=== PATIENT | male | born 1965 | race Caucasian/White ===

== ENCOUNTER 2023-05-13 08:42 | Emergency (ER) | payer OTHER, SELFPAY ==
[2023-05-13 08:47] VITALS: BP 191/108
--- NOTE | 2023-05-13 09:26 | ED.GENMED ---
History of Present Illness
General
Chief Complaint: Rectal Bleeding
Source: patient
Exam Limitations: none
Time Seen by Provider: 05/13/23 09:04
Nursing documentation reviewed up to this point in time: agreed with
Travel History
Have you had any contact with someone who has COVID-19?: No
Do you have any symptoms of coronavirus? Fever > 100 degrees, chills, cough, shortness of breath, sore throat, loss of taste or smell, muscle aches, or headache?: No
History of Present Illness
History of Present Illness:
57-year-old male with past medical history of hypertension hyperlipidemia previous colon resection last year secondary to recurrent diverticulitis and significant diverticulosis. He is presenting to the emergency department today with concerns of
bright red blood starting yesterday morning multiple episodes throughout the day yesterday and 1 episode today. Has had nausea no vomiting. Also has discomfort to the lower abdomen mainly to the right lower and left lower quadrants. He claims
this feels somewhat similar to previous episodes of diverticulitis. Denies chest pain shortness of breath or lightheadedness. Denies taking blood thinners.
Past History
Past History
ED Past Medical History: None
ED Past Surgical History: Negative Appendectomy, Bowel resection, Cardiac or Cholecystectomy
Social History
Tobacco: Non-smoker
Alcohol: Occasional
Drug: None
Personal:
Living: with family
Employment: Employed
Family History
Family History: Other (Noncontributory)
Review of Systems
Review of Systems
Allergies reviewed?: Yes
All Other Systems: ROS reviewed and negative except as documented in HPI and ROS
Phy Exam
Physical Exam
Physical Exam:
GENERAL: Alert , in no apparent distress
EYE: pupils equal and reactive
NECK: Supple, no significant adenopathy.
ENT: o/p clr, mmm.
CARDIAC: Regular rate and rhythm .
LUNGS: Clear breath sounds bilaterally, no acute respiratory distress, no wheezes/rales/rhonchi
ABDOMEN: Rectal examination with light brown stool vaguely guaiac positive. No hemorrhage. Tender to palpation throughout the lower abdomen maximal to the left lower quadrant less discomfort to the right quadrant no guarding no peritoneal signs.
NEUROLOGICAL: Alert and oriented, no focal neuro deficits
SKIN: Warm and dry, skin intact.
MUSCULOSKELETAL: No edema, well perfused.
PSYCH: Normal and appropriate interaction.
Course
Orders/Labs/Results
Orders:
Orders
05/13/23 08:51
EKG [Electrocardiogram (*1)] Urgent
Reason for Study: Tachycardia
EKG- Treatment ONCE
05/13/23 09:22
0.9% Sodium Chloride 1000 ml [Nss] 1,000 ml IV BOLUS
Ondansetron Injectable [Zofran] 4 mg IV NOW STA
Test Result ONCE
05/13/23 09:48
Type+Screen Urgent
Alcohol Urgent
Complete Blood Count/With Diff Urgent
Comprehensive Metabolic Panel Urgent
PTT Urgent
Prothrombin Time Urgent
Urinalysis Reflex To Culture Urgent
Date Specimen was Collected: 05/13/23
Time Specimen was Collected: 09:30
05/13/23 10:02
Iohexol [Omnipaque] 50 ml .ROUTE .[facility]
05/13/23 10:24
CT Abd/pel W Iv And Oral Contr Urgent
Comment:
Reason For Exam: abd pain
Iohexol [Omnipaque] See Protocol PO NOW STA
05/13/23 11:14
Add On- LAB Urgent
Tests Added?: alcohol
Abnormal Lab Results
05/13/23
09:48
MCH 31.4 H pg
(27.0-31.0)
MPV 10.5 H fL
(7.4-10.4)
Absolute Lymphs (auto) 0.9 L 10^3/uL
(1.2-3.4)
Lymphocytes % 16.1 L %
(20.5-51.1)
Monocytes % 11.2 H %
(1.7-9.3)
Glucose 108 H mg/dl
(70-99)
05/13/23 09:48
05/13/23 09:48
Vital Signs
Initial and Last Documented VS:
Initial Vital Signs
Temp Pulse Resp BP Pulse Ox
98.7 F 122 16 191/108 97
05/13/23 08:47 05/13/23 08:47 05/13/23 08:47 05/13/23 08:47 05/13/23 08:47
Last Documented Vital Signs
Temp Pulse Resp BP Pulse Ox
98.7 F 76 18 159/107 96
05/13/23 08:47 05/13/23 16:49 05/13/23 16:49 05/13/23 16:49 05/13/23 16:49
MDM/Problems Addressed
MDM/Problems Addressed:
57-year-old male presenting to the emergency department today with concerns of bright red blood per rectum over the past 24 hours. Had multiple episodes of red stool. Also brown stool as well. Has had lower abdominal in the same time. Does have
a history of glottis. But here heart rate elevated in the 110s during my examination initial EKG in the 120s sinus rhythm. Denies any lightheadedness chest pain shortness of breath. Has had intermittent palpitations and is being evaluated by
cardiology for this recently had a Holter monitor in place. Otherwise here his main concern is his lower abdominal bleeding. Plan for CT scan for further assessment as well as labs. CT without emergent findings hemoglobin 17.2 patient reassessed
still with lower abdominal pain. Concerning the patient's history of GI surgery description of large volume bleeding earlier today plan for admission for further monitoring and repeated labs.
1655: Patient was seen by hospitalist and decided that he would prefer to go home and will return for any worsening of symptoms. Patient did appear well throughout ER stay and I feel this is reasonable to go home. He understands potential risk and
will return for any worsening symptoms.
*Critical Care Note
Total Time (30-74mins, 75-104mins- exclusive of procedures): Not Applicable
ED Attending Note
-
Portions of this chart may have been created with voice recognition software.� Occasional wrong word or��sound alike� substitutions may have occurred due to the inherent limitations of voice recognition software.
Discharge Plan
Departure
Patient Disposition: Home (Routine Discharge)
Date of Disposition: 05/13/23
Time of Disposition: 15:34
Admit to: Med/Surg
Admit to doctor: Aguirre
Presentation/result/management discussed w/ accepting MD/: Hospitalist
Patient with high blood pressure during this ER visit?: No
Condition: Good
Covid-19: Not Applicable
Discharge Problem:
Rectal bleeding, Abdominal pain
Instructions: Bloody Stools, Adult (DC)
Prescriptions:
No Action
multivitamin with folic acid [Tab-A-Haim] 1 TABLET tablet
1 tab PO DAILY
tramadol 50 mg Tablet
50 mg PO DAILYPRN PRN (Reason: moderate pains)
amlodipine [Norvasc] 10 mg Tablet
10 mg PO DAILY
oxycodone 5 mg tablet
5 mg PO Q6HPRN PRN (Reason: ra flares up)
metoprolol tartrate 25 mg tablet
25 mg PO BID
Referrals:
Rayna Warner MD [Active] - Follow up in 5-7 days
Willie Mae DO [Family Provider] -
Activity Restrictions/Additional Instructions:
You came to the emergency department today with concerns of blood in your stool. 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 Return to the emergency department for any worsening, new or concerning symptoms.
Interventions
Interventions:
*Risk Screen - Suicide Last Done: 05/13/23 08:47
*General Assessment Last Done: 05/13/23 08:47
*Neglect/Abuse Screening Last Done: 05/13/23 08:47
WA-Pgxjjt-Eozspkuxfr Assessment Last Done: 05/13/23 11:25
ED- Cardiac Assessment Last Done: 05/13/23 11:25
ED- Pulmonary Assessment Last Done: 05/13/23 11:25
[2023-05-13] MEDS: NSS 1000 IV (09:46)
[2023-05-13] MEDS: ZOFRAN 4 MG IV (09:46)
[2023-05-13 10:06] LABS: % Basophils 0.7 % (0-2); % Eosinophils 0.5 % (0-6); % Immature Granulocytes 0.2 % (0-0.5); % Lymphocytes 16.1 % (20.5-51.1); % Monocytes 11.2 % (1.7-9.3); % Neutrophils 71.3 % (42.2-75.2); Absolute Lymphocytes 0.9 10^3/uL (1.2-3.4); Absolute Monocytes 0.6 10^3/uL (0.1-0.6); Absolute Neutrophils 4.1 10^3/uL (1.4-6.5); Hematocrit 48.9 % (39.0-52.0); Hemoglobin 17.2 g/dL (13.0-18.0); Mean Corp Hgb Conc. 35.2 g/dL (33.0-37.0); Mean Corpuscular Hgb 31.4 pg (27.0-31.0); Mean Corpuscular Volume 89.2 fL (80.0-94.0); Mean Platelet Volume 10.5 fL (7.4-10.4); Nucleated Red Blood Cells % 0 % (-); Platelet Count 207 10^3/uL (130-400); Red Blood Cell Count 5.48 10^6/uL (4.70-6.10); Red Cell Dist. Width 12.8 % (11.5-14.5); White Blood Cell Count 5.7 10^3/uL (4.8-10.8)
[2023-05-13 10:17] LABS: INR 1.06
[2023-05-13 10:18] LABS: ALT (SGPT) 49 U/L (0-50); APTT 28.8 Sec (23.4-35.0); AST (SGOT) 33 U/L (17-59); Albumin 4.3 g/dl (3.5-5.0); Alkaline Phosphatase 103 U/L (38-126); Blood Urea Nitrogen 19 mg/dl (9-20); Calcium 9.1 mg/dl (8.4-10.2); Carbon Dioxide 27 mmol/L (22-30); Chloride 105 mmol/L (98-107); Glucose 108 mg/dl (70-99); Potassium 4.1 mmol/L (3.5-5.1); Sodium 137 mmol/L (135-145); Total Bilirubin 0.8 mg/dl (0.2-1.3); Total Protein 7.1 g/dl (6.3-8.2); eGFR > 60.00
[2023-05-13] MEDS: OMNIPAQUE 50 ML PO (10:50)
[2023-05-13 10:54] VITALS: BP 154/96
[2023-05-13 11:00] VITALS: BP 155/92
[2023-05-13 11:03] LABS: Urine Albumin Negative (Neg - Trace); Urine Bilirubin Negative (Negative); Urine Character Clear (Clear); Urine Color Yellow; Urine Glucose Negative (Negative); Urine Ketone Negative (Negative); Urine Leukocyte Negative (Negative); Urine Nitrite Negative (Negative); Urine Occult Blood Negative (Negative); Urine Specific Gravity 1.015 (<1.030); Urine Urobilinogen Negative (Neg - 1+)
[2023-05-13 11:29] VITALS: BMI 31.5
[2023-05-13 12:47] LABS: Alcohol None Detected
[2023-05-13 16:49] VITALS: BP 159/107
== END 2023-05-13 17:06 | disposition home or self-care (01) ==
LOC: EMR 08:42
PROVIDERS: Physician Assistant; EMERGENCY PHYSICIAN Emergency Medicine; FAMILY PHYSICIAN Family Medicine
DX: K62.5 Hemorrhage of anus and rectum (principal); R10.9 Unspecified abdominal pain
CPT/HCPCS: 99285; 96374; 96361; 74177; 80053; 81003; 82077; 85025; 85610; 85730; 86850; 86900; 86901; 93005; Q9967

== ENCOUNTER → 2023-05-21 07:12 | Outpatient (REF) | payer OTHER, SELFPAY | LOC: DHCBS MAIN 07:12 | PROVIDERS: ATTENDING PHYSICIAN Internal Medicine Cardiovascular Disease; FAMILY PHYSICIAN Family Medicine | DX: I10 Essential (primary) hypertension (principal); E78.5 Hyperlipidemia, unspecified | CPT/HCPCS: 93306 ==

== ENCOUNTER → 2023-06-20 07:30 | Outpatient (REF) | payer OTHER, SELFPAY | LOC: RCS 07:30 | PROVIDERS: ATTENDING PHYSICIAN Internal Medicine Cardiovascular Disease; FAMILY PHYSICIAN Family Medicine | DX: I10 Essential (primary) hypertension (principal); E78.5 Hyperlipidemia, unspecified | CPT/HCPCS: 93017 ==

== ENCOUNTER 2024-08-09 06:35 | Emergency (ER) | payer OTHER, SELFPAY ==
[2024-08-09 06:37] VITALS: BP 180/110
[2024-08-09 07:02] LABS: % Basophils 0.7 % (0-2); % Eosinophils 1.3 % (0-6); % Immature Granulocytes 0.1 % (0-0.5); % Lymphocytes 26.7 % (20.5-51.1); % Monocytes 16.2 % (1.7-9.3); Absolute Basophils 0.1 10^3/uL (0-0.2); Absolute Eosinophils 0.1 10^3/uL (0-0.7); Absolute Lymphocytes 1.8 10^3/uL (1.2-3.4); Absolute Monocytes 1.1 10^3/uL (0.1-0.6); Absolute Neutrophils 3.7 10^3/uL (1.4-6.5); Hematocrit 47.6 % (39.0-52.0); Hemoglobin 16.7 g/dL (13.0-18.0); Mean Corp Hgb Conc. 35.1 g/dL (33.0-37.0); Mean Corpuscular Hgb 31.9 pg (27.0-31.0); Mean Platelet Volume 10.9 fL (7.4-10.4); Nucleated Red Blood Cells % 0 % (-); Platelet Count 223 10^3/uL (130-400); Red Blood Cell Count 5.23 10^6/uL (4.70-6.10); Red Cell Dist. Width 12.8 % (11.5-14.5); White Blood Cell Count 6.8 10^3/uL (4.8-10.8)
[2024-08-09 07:13] LABS: ALT (SGPT) 65 U/L (0-50); AST (SGOT) 37 U/L (17-59); Albumin 4.4 g/dl (3.5-5.0); Alkaline Phosphatase 83 U/L (38-126); Blood Urea Nitrogen 18 mg/dl (9-20); Calcium 9.6 mg/dl (8.4-10.2); Carbon Dioxide 26 mmol/L (22-30); Chloride 107 mmol/L (98-107); Glucose 146 mg/dl (70-99); Lipase 111 U/L (23-300); Potassium 4.4 mmol/L (3.5-5.1); Sodium 144 mmol/L (135-145); Total Protein 7.3 g/dl (6.3-8.2); eGFR > 60.00
[2024-08-09 07:52] LABS: Urine Albumin 2+ (Neg - Trace); Urine Bilirubin Negative (Negative); Urine Character Clear (Clear); Urine Color Yellow; Urine Glucose Negative (Negative); Urine Ketone Negative (Negative); Urine Leukocyte Negative (Negative); Urine Nitrite Negative (Negative); Urine Occult Blood 4+ (Negative); Urine Specific Gravity 1.025 (<1.030); Urine Urobilinogen Negative (Neg - 1+)
[2024-08-09 08:00] VITALS: BP 162/101
--- NOTE | 2024-08-09 08:22 | ED.GENMED ---
History of Present Illness
General
Chief Complaint: Abdominal Pain
Source: patient
Exam Limitations: none
Time Seen by Provider: 08/09/24 08:06
Nursing documentation reviewed up to this point in time: agreed with
History of Present Illness
History of Present Illness:
59 y/o M
h/o psoriasis not currently compliant with meds
HTN on BB
divertic s/p partial resection dr. cary 2022
here with RLQ pain x 2 days
pain is worse with movement
had BM yesterday and normal brown stool but at the end was small area of blood;
he has not had BM today
didn't take his meds for bp today either
says his pain is signficiant
+nausea but no vomtiign, diarrhea, fever, chills
denies h/o alcohol abuse, anxiety but he is prescribed xanax
he also takes tramadol daily for chronic pain
still has his appendix
Past History
Past History
ED Past Medical History: HTN, Hypercholesterolemia, Psychiatric and Other (diverticulitis)
ED Past Surgical History: Bowel resection; Negative Appendectomy, Cardiac or Cholecystectomy
Social History
Tobacco: Non-smoker
Alcohol: Occasional
Drug: None
Personal:
Living: with family
Employment: Employed
Family History
Family History: Other (Noncontributory)
Review of Systems
Review of Systems
Allergies reviewed?: Yes
All Other Systems: Not applicable
Phy Exam
Physical Exam
Physical Exam:
GENERAL: Alert ,anxious, shaky, uncomfortable
EYE: pupils equal and reactive
NECK: Supple
ENT: o/p clr, mmm.
CARDIAC:tachy 120s
LUNGS: Clear breath sounds bilaterally, no acute respiratory distress, no wheezes/rales/rhonchi
ABDOMEN: Soft, MOD RIGHT LOWER QUAD TENDER, GUARDING,, no rebound no cvat, normal bowel sounds
NEUROLOGICAL: Alert and oriented, no focal neuro deficits
SKIN: Warm and dry, skin intact.
MUSCULOSKELETAL: No edema, well perfused.
PSYCH: Normal and appropriate interaction.
Course
Orders/Labs/Results
Orders:
Orders
08/09/24 06:49
Complete Blood Count/With Diff Urgent
Comprehensive Metabolic Panel Routine
Lipase Urgent
08/09/24 07:25
Urinalysis Urgent
Date Specimen was Collected: 08/09/24
Time Specimen was Collected: 06:41
Urine Microscopic Urgent
Date Specimen was Collected: 08/09/24
Time Specimen was Collected: 06:41
08/09/24 08:21
CT Abd/pel W Iv And Oral Contr Urgent
Comment:
Reason For Exam: RLQ pain; h/o colon resection, diverticulitis
HYDROmorphone [Dilaudid] 1 mg IV NOW STA
Iohexol [Omnipaque] See Protocol PO NOW STA
Metoprolol [Lopressor] 25 mg PO NOW STA
08/09/24 08:22
0.9% Sodium Chloride 1000 ml [Nss] 1,000 ml IV BOLUS
08/09/24 08:28
Ondansetron Injectable [Zofran] 4 mg .ROUTE .[facility] ONE
08/09/24 08:31
Lactic Acid Urgent
08/09/24 08:32
Ondansetron Injectable [Zofran] 4 mg IV NOW STA
08/09/24 11:24
HYDROmorphone [Dilaudid] 1 mg .ROUTE .[facility]
08/09/24 11:27
HYDROmorphone [Dilaudid] 1 mg IV NOW STA
08/09/24 11:36
Ketorolac [Toradol] 15 mg IV NOW STA
Tamsulosin [Flomax] 0.4 mg PO NOW STA
08/09/24 12:40
CefTRIAXone [Rocephin] 2,000 mg IV NOW STA
Abnormal Lab Results
08/09/24 08/09/24
06:49 07:25
MCH 31.9 H pg
(27.0-31.0)
MPV 10.9 H fL
(7.4-10.4)
Absolute Monos (auto) 1.1 H 10^3/uL
(0.1-0.6)
Monocytes % 16.2 H %
(1.7-9.3)
Glucose 146 H mg/dl
(70-99)
ALT 65 H U/L
(0-50)
Urine Occult Blood 4+ A
(Negative)
Urine RBC >100 A /HPF
(0-2)
Urine WBC 6-10 A /HPF
(0-5)
Urine Bacteria Few A
(Negative)
Urine Albumin 2+ A
(Neg - Trace)
08/09/24 06:49
08/09/24 06:49
Vital Signs
Initial and Last Documented VS:
Initial Vital Signs
Temp Pulse Resp BP Pulse Ox
37.0 C 124 26 180/110 97
08/09/24 06:37 08/09/24 06:37 08/09/24 06:37 08/09/24 06:37 08/09/24 06:37
Last Documented Vital Signs
Temp Pulse Resp BP Pulse Ox
37.0 C 80 16 119/78 98
08/09/24 06:37 08/09/24 12:50 08/09/24 12:50 08/09/24 12:50 08/09/24 12:50
MDM/Problems Addressed
Differential Diagnosis Includes:
diverticluitis, appendicitis, kidney stone, bowel obstructoin
MDM/Problems Addressed:
59 y/o M with h/o htn, hld, diverticulitis s/p resection
here with RLQ pain the past 2 days, waxes and wanes, worse with palpation worse with movement
no urinary sypmtoms
no fever
looks uncomfortable, is tachy and anxious as well
given pain meds which improved his Vitals and pain but then he had recurrence of pain
wbc normal
ua shows some bacteria but mostly reds, minimal whites, no nitrite
ct shows a 4 mm distal obstructing kidney stone
pt's pain controlled with a 2nd round of dilaudid (is on tramadol baseline daily) and toradol
givne strainer
1 dose rocephin given here but doubt he has infected urine
renal fxn mormal
d/c home, strainer, urology, flomax, oxycodone (d/c tramadol) and zofran
*Critical Care Note
Total Time (30-74mins, 75-104mins- exclusive of procedures): Not Applicable
ED Attending Note
-
Portions of this chart may have been created with voice recognition software.� Occasional wrong word or��sound alike� substitutions may have occurred due to the inherent limitations of voice recognition software.
Discharge Plan
Departure
Patient Disposition: Home (Routine Discharge)
Date of Disposition: 08/09/24
Time of Disposition: 12:43
Patient with high blood pressure during this ER visit?: Yes
Condition: Fair
Covid-19: Not Applicable
Discharge Problem:
Kidney stone
Instructions: Kidney Stones (DC)
Prescriptions:
New
tamsulosin [Flomax] 0.4 mg capsule
0.4 mg PO DAILY Qty: 20 0RF
ondansetron 4 mg tablet,disintegrating
4 mg PO TIDPRN PRN (Reason: nausea/vomiting) Qty: 4 0RF
oxycodone 5 mg tablet
5 mg PO TID PRN (Reason: Pain) Qty: 10 0RF
No Action
multivitamin with folic acid [Tab-A-Haim] 1 TABLET tablet
1 tab PO DAILY
tramadol 50 mg Tablet
50 mg PO DAILYPRN PRN (Reason: moderate pains)
amlodipine [Norvasc] 10 mg Tablet
10 mg PO DAILY
oxycodone 5 mg tablet
5 mg PO Q6HPRN PRN (Reason: ra flares up)
metoprolol tartrate 25 mg tablet
25 mg PO BID
Referrals:
Zev Carrasco MD [Active] - Follow up in 2-3 days
Willie Mae DO [Family Provider] -
Activity Restrictions/Additional Instructions:
STAY HYDRATED
TAKE FLOMAX 0.4 MG ONCE A DAY UNTIL YOU PASS THE STONE
URINATE THROUGH THE STRAINER EACH TIME YOU PEE
TAKE TYLENOL 2 EXTRA STRENGTH TABS 3 TIMES A DAY FOR PAIN
IF PAIN IS SEVERE YOU CAN TRY OXYCODONE 5 MG EVERY 6 HOURS NEEDED, THIS IS A NARCOTIC AND YOU CANNOT DRIVE OR DRINK ON THIS MEDICATION.
RETURN FOR: SEVERE PAIN, VOMITING, FEVER, NOT URINATING, BURNING WITH URINATION OR ANY CONCERNS.
CALL THE UROLOGIST TO FOLLOW UP
Interventions
Interventions:
*Risk Screen - Suicide Last Done: 08/09/24 06:37
*General Assessment Last Done: 08/09/24 08:42
*Neglect/Abuse Screening Last Done: 08/09/24 06:37
*ED- Fall Risk Assessment Last Done: 08/09/24 08:42
*ED COVID-19 Vaccine History Last Done: 08/09/24 08:42
*Nursing Disposition Last Done: 08/09/24 13:11
DP-Ayxhfw-Kibviglcmu Assessment Last Done: 08/09/24 08:15
Discharge Date and Time
Discharge Date/Time: 08/09/24 13:12
Print Language: ALBANIAN
[2024-08-09 08:25] LABS: Urine Mucus Many; Urine Squamous Cell 16-20 /LPF (Few)
[2024-08-09 08:27] LABS: Urine Bacteria Few (Negative); Urine Red Blood Cell >100 /HPF (0-2)
[2024-08-09] MEDS: ZOFRAN 4 MG IV (08:34)
[2024-08-09] MEDS: DILAUDID 1 MG IV ×2 (08:35→11:28)
[2024-08-09] MEDS: OMNIPAQUE 50 ML PO (08:39)
[2024-08-09] MEDS: LOPRESSOR 25 MG PO (08:40)
[2024-08-09] MEDS: NSS 1000 IV (08:40)
[2024-08-09 08:42] VITALS: BMI 32.0
[2024-08-09 09:00] LABS: Lactic Acid 1.4 mmol/L (0.7-2.0)
[2024-08-09 11:30] VITALS: BP 140/81
[2024-08-09] MEDS: FLOMAX 0.4 MG PO (11:54)
[2024-08-09] MEDS: TORADOL 15 MG IV (11:54)
[2024-08-09] MEDS: ROCEPHIN 2000 MG IV (12:46)
[2024-08-09 12:50] VITALS: BP 119/78
== END 2024-08-09 13:12 | disposition home or self-care (01) ==
LOC: EMR 06:35
PROVIDERS: Emergency Medicine; Physician Assistant; EMERGENCY PHYSICIAN Emergency Medicine; FAMILY PHYSICIAN Family Medicine
DX: N20.0 Calculus of kidney (principal); R11.0 Nausea; Z91.148 Patient's other noncompliance with medication regimen for other reason; I10 Essential (primary) hypertension; K57.92 Diverticulitis of intestine, part unspecified, without perforation or abscess without bleeding; E78.00 Pure hypercholesterolemia, unspecified; L40.50 Arthropathic psoriasis, unspecified; M06.9 Rheumatoid arthritis, unspecified; G89.29 Other chronic pain; Z86.16 Personal history of COVID-19; Z98.0 Intestinal bypass and anastomosis status; Z79.899 Other long term (current) drug therapy
CPT/HCPCS: 99284; 96375 ×3; 96374; 96376; 74177; 80053; 81003; 81015; 83605; 83690; 85025; Q9967

== ENCOUNTER 2024-08-11 13:10 | Inpatient (IN) | payer OTHER, SELFPAY ==
[2024-08-11] VITALS (25 sets, daily range): BP systolic 93–156; BP diastolic 58–103; PULSE 2–120; BMI 32.0; BMI 31.4
--- NOTE | 2024-08-11 09:43 | ED.GENMED ---
History of Present Illness
General
Chief Complaint: Flank Pain
Source: patient and records
Time Seen by Provider: 08/11/24 09:38
History of Present Illness
History of Present Illness:
59-year-old male past medical history of hypertension, hyperlipidemia, diverticulitis status post colon resection, recently seen here 2 days ago diagnosed with a 4 mm distal right ureteral stone presenting back to the emergency department for
reevaluation due to continued pain within the right lower abdomen/flank area. Patient states he did take the oxycodone that was prescribed to him but this made him constipated and did not like the side effects. He did not take anything for the
pain yet today. He denies any fevers, chills, rigors, nausea, vomiting, urinary frequency/urgency/dysuria/hematuria. No other concerns. Currently stating pain is about an 8 out of 10, not much different than what it was when he presented to the
ER a couple of days ago.
Past History
Past History
ED Past Medical History: HTN, Hypercholesterolemia, Psychiatric and Other (diverticulitis)
ED Past Surgical History: Bowel resection; Negative Appendectomy, Cardiac or Cholecystectomy
Social History
Tobacco: Non-smoker
Alcohol: Occasional
Drug: None
Personal:
Living: with family
Employment: Employed
Family History
Family History: Other (Noncontributory)
Review of Systems
Review of Systems
All Other Systems: ROS reviewed and negative except as documented in HPI and ROS
Phy Exam
Physical Exam
Physical Exam:
GENERAL: Alert , in no apparent distress but does appear uncomfortable
EYE: clear conjunctiva b/l
HEAD: NCAT
ENT: mmm.
CARDIAC: Tachycardic rate and rhythm, no murmur
LUNGS: Clear breath sounds bilaterally, no acute respiratory distress, no wheezes/rales/rhonchi
ABDOMEN: Soft, without focal tenderness, no r/g, mild right CVA tenderness
NEUROLOGICAL: Alert and oriented
SKIN: Warm and dry, skin intact.
MUSCULOSKELETAL: well perfused.
PSYCH: Normal and appropriate interaction.
Scores
Heart Failure Risk
Heart Failure Risk Score: Not Applicable
Heart Score for Chest Pain Patients
STEMI patient?: Not applicable
Withdrawal Assessment of Alcohol
Withdrawal Assessment Completed?: Not applicable
Course
Orders/Labs/Results
Orders:
Orders
08/11/24 09:42
0.9% Sodium Chloride 1000 ml [Nss] 1,000 ml IV BOLUS
HYDROmorphone [Dilaudid] 0.5 mg IV NOW STA
Ketorolac [Toradol] 30 mg IV NOW STA
CR Abdomen - 1 View Urgent
Comment:
Reason For Exam: right flank pain, distal ureteral stone
08/11/24 09:48
Basic Metabolic Panel Urgent
Complete Blood Count/With Diff Urgent
08/11/24 11:57
HYDROmorphone [Dilaudid] 0.5 mg IV NOW STA
08/11/24 12:06
Urinalysis Reflex To Culture Urgent
Date Specimen was Collected: 08/11/24
Time Specimen was Collected: 12:03
Urine Microscopic Reflex Cult Urgent
08/11/24 12:21
CeFAZolin 2 GRAM [Ancef] 2 grams in 10 ml IV PRE PROCEDURE
08/11/24 12:31
Admit/Transfer Patient As Directed
Co-Sign Provider:
Level of Care: Inpatient admission
Assign to:: Medical/Surgical
Physician / Group: Elvie Mulligan
Diagnosis: obstructing nephrolithiasis
Reason for Hospitalization: failure outpatient therapy
Expected length of stay greater than two midnights?: Yes
ELOS- Estimated Length of Stay in days: 3
I certify the patient meets the requirements for IP care: Yes
PRN Pain Medication Management As Directed
May give lesser potent ordered pain med per pt: Yes
preference::
Protocol:: Medication orders for pain may be administered in a
manner that supports deferring to patient preference
when the pt is:
- Requesting an ordered lesser potent pain medication.
Least to most potent pain medications are defined
as: acetaminophen < NSAID < tramadol < opioids
(morphine, oxycodone, hydromorphone).
- Requesting a lesser dose of the same medication IF
ORDERED.
- Requesting a less intrusive route of administration
if both routes are prescribed by the provider (PO <
IV).
08/11/24 12:32
Code Status As Directed
Resuscitation Status: Full Code
08/11/24 12:38
Josib-Hgwg-Lurkspj Urgent
Magnesium Urgent
Potassium Urgent
08/11/24 12:45
0.9% Sodium Chloride 1000 ml [Nss] 1,000 ml IV 100 mls/hr
08/11/24 13:00
Flush (0.9% Sodium Chloride) [Flush (Nss)] See Dose Instructions IV PER PROTOCOL
Abnormal Lab Results
08/11/24 08/11/24 08/11/24
09:48 12:06 12:38
MCH 32.2 H pg
(27.0-31.0)
MPV 10.5 H fL
(7.4-10.4)
Absolute Lymphs (auto) 1.1 L 10^3/uL
(1.2-3.4)
Absolute Monos (auto) 0.9 H 10^3/uL
(0.1-0.6)
Lymphocytes % 18.5 L %
(20.5-51.1)
Monocytes % 14.9 H %
(1.7-9.3)
Glucose 122 H mg/dl
(70-99)
ALT 62 H U/L
(0-50)
Ur Occult Blood Reflex 4+ A
(Negative)
Urine RBC 16-20 A /HPF
(0-2)
Urine Bacteria (Reflex) Few A
(Negative)
08/11/24 09:48
08/11/24 12:38
Vital Signs
Initial and Last Documented VS:
Initial Vital Signs
Temp Pulse Resp BP Pulse Ox
98.9 F 120 20 133/88 96
08/11/24 09:31 08/11/24 09:31 08/11/24 09:31 08/11/24 09:31 08/11/24 09:31
Last Documented Vital Signs
Temp Pulse Resp BP Pulse Ox
98.9 F 76 16 150/88 95
08/11/24 09:31 08/11/24 12:09 08/11/24 12:09 08/11/24 12:03 08/11/24 12:03
MDM/Problems Addressed
Differential Diagnosis Includes:
Renal/ureteral colic from known 4 mm distal ureteral stone, I do not have concern for infected kidney stone given lack of fevers and patient had a negative urine culture done from 2 days ago, no concern for acute appendicitis
MDM/Problems Addressed:
59-year-old male presenting back to the emergency department for reevaluation after being diagnosed with a 4 mm distal right ureteral stone 2 days ago, pain continues today. Patient attempted oxycodone yesterday but states this caused him
constipation and did not like the side effect of this. Did not take anything for pain yet today. Noted to be tachycardic which I suspect is related to pain. Patient noted that he did have pain relief with the Toradol and Dilaudid he received 2
days ago. Will reobtain labs and treat with fluids as well as the pain medications. Will discuss with urology if patient continues with pain as he may need further intervention but given the stone is 4 mm urology would likely want to continue
passage trial of stone.
*Radiology
Radiology exam reviewed: radiology read reviewed
*Pulse Oximetry
Patient hypoxic: no
*Critical Care Note
Total Time (30-74mins, 75-104mins- exclusive of procedures): Not Applicable
Data Reviewed
Review of Other/Old Records Reveals: Records and Radiology Studies
Comment
Comment:
Following pain medication patient does note improved pain. He appears much more comfortable. Abdominal x-ray does show suspected stone with still within the right distal ureter. Will continue to monitor. Disposition pending
Patient Management
Discussion with other providers: Hospitalist and Roller Repairer
Escalation/DeEscalation of care consider admission/obs:
Despite his initial improvement of pain patient states that pain started to return. Given he has required multiple rounds of IV pain medication on initial visit as well as today I reached out to urology who will come to the ER to evaluate patient
with plans to take patient to the OR later this afternoon, admit to the hospitalist overnight for continued pain control and monitoring. Hospitalist team is aware and accepts patient for continued evaluation and treatment. Patient advised to
remain NPO.
ED Attending Note
-
Portions of this chart may have been created with voice recognition software.� Occasional wrong word or��sound alike� substitutions may have occurred due to the inherent limitations of voice recognition software.
Discharge Plan
Departure
Patient Disposition: Admit
Date of Disposition: 08/11/24
Time of Disposition: 11:58
Presentation/result/management discussed w/ accepting MD/DO: Hospitalist
Discharge Problem:
Ureterolithiasis, Ureteral colic
Interventions
Interventions:
*Risk Screen - Suicide Last Done: 08/11/24 11:31
*General Assessment Last Done: 08/11/24 11:31
*Neglect/Abuse Screening Last Done: 08/11/24 11:31
*ED- Fall Risk Assessment Last Done: 08/11/24 11:31
*ED COVID-19 Vaccine History Last Done: 08/11/24 11:31
KU-Rnfpxs-Uxvvpvkufo Assessment Last Done: 08/11/24 09:55
ED-Male Genitourinary Assessment Last Done: 08/11/24 09:55
[2024-08-11] MEDS: DILAUDID 0.5 MG IV ×4 (09:49→23:25)
[2024-08-11] MEDS: TORADOL 30 MG IV (09:49)
[2024-08-11] MEDS: NSS 1000 IV ×2 (09:49→14:24)
[2024-08-11 10:00] LABS: % Basophils 0.7 % (0-2); % Eosinophils 0.9 % (0-6); % Immature Granulocytes 0.3 % (0-0.5); % Lymphocytes 18.5 % (20.5-51.1); % Monocytes 14.9 % (1.7-9.3); % Neutrophils 64.7 % (42.2-75.2); Absolute Eosinophils 0.1 10^3/uL (0-0.7); Absolute Lymphocytes 1.1 10^3/uL (1.2-3.4); Absolute Monocytes 0.9 10^3/uL (0.1-0.6); Absolute Neutrophils 3.7 10^3/uL (1.4-6.5); Hematocrit 45.1 % (39.0-52.0); Hemoglobin 16.1 g/dL (13.0-18.0); Mean Corp Hgb Conc. 35.7 g/dL (33.0-37.0); Mean Corpuscular Hgb 32.2 pg (27.0-31.0); Mean Corpuscular Volume 90.2 fL (80.0-94.0); Mean Platelet Volume 10.5 fL (7.4-10.4); Nucleated Red Blood Cells % 0 % (-); Platelet Count 208 10^3/uL (130-400); Red Cell Dist. Width 12.7 % (11.5-14.5); White Blood Cell Count 5.7 10^3/uL (4.8-10.8)
[2024-08-11 10:21] LABS: Blood Urea Nitrogen 13 mg/dl (9-20); Calcium 9.6 mg/dl (8.4-10.2); Carbon Dioxide 27 mmol/L (22-30); Chloride 105 mmol/L (98-107); Glucose 122 mg/dl (70-99); Sodium 140 mmol/L (135-145); eGFR > 60.00
--- NOTE | 2024-08-11 12:03 | HPS.HSE ---
Family Physician
-
Family Physician: Willie Mae
Chief Complaint
-
flank pain
History of Present Illness
Mr. Kenny Canchola is a 59 yo man with hx HTN, HLD, diverticulitis s/p colon resection (11/03), recent ER visit 2 days ago diagnosed with a 4mm distal right ureteral stone presents back with continued pain along right flank/lower abdomen.
Patient has had a renal stone in past, stated this pain felt worse. Located in right flank and lower abdomen. It started 4 days ago. No fevers/chills. He was prescribed Percocet at last ER visit but it made him constipated.
+ nausea earlier. No vomiting. No LE swelling. No rash.
Medical History
Past Medical History
Past Medical History: Reports Other
Additional Past Medical History:
Essential Hypertension
Hyperlipidemia
Psoriasis
Psoriatic Arthrits
Past Surgical History: Reports None
Social History
Tobacco: Non-smoker
Alcohol: Occasional
Family History
Family History: Not pertinent
Allergies / Home Medications
Allergies reflects when Allergies were last updated in [facility].
Home Medications with original date entered in [facility]
Allergy/Medication List:
Allergies
Allergy/AdvReac Type Severity Reaction Status Date / Time
No Known Allergies Allergy Verified 08/11/24 09:33
Home Medications
amlodipine 10 mg tablet (Norvasc) 10 mg PO DAILY Blood Pressure 05/13/23
tamsulosin 0.4 mg capsule (Flomax) 0.4 mg PO DAILY #20 caps 08/09/24
rosuvastatin 20 mg tablet (Crestor) 20 mg PO DAILY 08/11/24
valsartan 320 mg tablet 320 mg PO DAILY 08/11/24
Review of Systems
-
History Source: Patient
A 12 point ROS was completed and negative except as noted: Yes
Physical Exam
Vital Signs
Vital Signs
Temp Pulse Resp BP Pulse Ox
98.9 F 120 20 133/88 96
08/11/24 09:31 08/11/24 09:31 08/11/24 09:31 08/11/24 09:31 08/11/24 09:31
Physical Exam
General: No Apparent Distress
HEENT: PERRLA
Respiratory: Clear; No Wheezes
Cardiac: S1/S2 and Regular Rhythm
GI: Soft and Non Tender
Musculoskeletal: No Edema
Skin: Warm and Dry; No Rash
Neuro: AO x 3
Psych: Calm
Laboratory Results
-
08/11/24 09:48
08/11/24 09:48
Laboratory Results
Total Bilirubin Cancelled 08/11/24 09:48
AST Cancelled 08/11/24 09:48
ALT Cancelled 08/11/24 09:48
Alkaline Phosphatase Cancelled 08/11/24 09:48
Data Reviewed
-
Diagnostic Radiology: Report Reviewed by me
Lab Data: Labs Reviewed by me
Impression/Plan
-
Mr. Kenny Canchola is a 59 yo man with hx HTN, HLD, diverticulitis s/p colon resection (11/03), recent ER visit 2 days ago diagnosed with a 4mm distal right ureteral stone presents back with continued pain along right flank/lower abdomen.
Triage VS: T 98.9, P 120, RR 20, BP 133/88, SpO2 96%
LABS: WBC 5.7, Hg 16.1, PLT 208, Na 140, Cl 105, CO2 27, Cr 0.8, Glucose 122
08/09 Abdomen/Pelvis CT
IMPRESSION:
1. Mild right hydronephrosis secondary to 4 mm calculus at the distal right ureter as above. No other renal or ureteral calculi identified.
2. Diffuse mild wall thickening of the urinary bladder which may be partially related to underdistention. Outlet obstruction is a consideration. Mild prostatomegaly.
3. Hepatic fatty infiltration.
08/11 Abdomen X-Ray
IMPRESSION:
There is a question 4 3 mm calcification projecting over the right sacral ala which may represent the known stone in the distal right ureter seen on recent CT.
Contrast is present throughout the colon, likely residual oral contrast from prior CT. There is no evidence of bowel obstruction.
MAR: IV Dilaudid x 2; IV Toradol, NS 1L
Obstructing Nephrolithiasis
-seen by Dr. Saldivar in the ER
-difficult with pain management/stone passage as outpatient - admit to inpatient
-NPO for OR
-IVF
-awaiting UA
-IV Cefazolin pre-OR
-IV Dilaudid PRN
-AUTOMOTIVE DETAILER Flomax
MARCIN
-s/p recent inspire implant
*Patient reports wheezing post anesthesia
-PRN nebulizers ordered - close monitoring in PACU post-op
Essential HTN
-hold AUTOMOTIVE DETAILER Valsartan/Amlodipine for now - monitor BP post anesthesia
HLD - AUTOMOTIVE DETAILER Statin
DVT PPx SCD
FULL CODE
[2024-08-11 12:26] LABS: Urine Albumin Negative (Neg - Trace); Urine Bilirubin Negative (Negative); Urine Character Clear (Clear); Urine Color Yellow; Urine Glucose Negative (Negative); Urine Ketone Negative (Negative); Urine Leukocyte Negative (Negative); Urine Nitrite Negative (Negative); Urine Occult Blood 4+ (Negative); Urine Specific Gravity 1.015 (<1.030); Urine Urobilinogen Negative (Neg - 1+)
--- NOTE | 2024-08-11 12:31 | CON.MD ---
Consultation - Medical
-
see dictated note
pt with hx of hx/arthritis/sleep apnea
no gu hx
2nd er visit with intractable pain due to distal right ureteral stone
reviewed films- discussed all options with pt along with risks, benefits, alternatives and disabilities
due to pain- elects to proceed to OR this afternoon for right ureteroscopy/laser litho and stent
med team will admit and plan to observe overnight pj to sleep apnea hx and some hx of post op resp issues
[2024-08-11 12:46] LABS: Urine Hyaline Cast 0-2 /LPF (0-2); Urine Red Blood Cell 16-20 /HPF (0-2); Urine Squamous Cell 0-2 /LPF (Few)
[2024-08-11 12:47] LABS: Urine Bacteria Few (Negative); Urine White Cell 0-2 /HPF (0-5)
[2024-08-11 13:00] LABS: ALT (SGPT) 62 U/L (0-50); AST (SGOT) 34 U/L (17-59); Albumin 3.9 g/dl (3.5-5.0); Alkaline Phosphatase 78 U/L (38-126); Direct Bilirubin 0.2 mg/dl (0.0-0.4); Potassium 4.1 mmol/L (3.5-5.1); Total Bilirubin 0.8 mg/dl (0.2-1.3); Total Protein 6.5 g/dl (6.3-8.2)
--- NOTE | 2024-08-11 14:00 | CM ---
CM met with pt bedside
Pt resides with his spouse in a 2SH with 3STE, full flight to 2nd floor
1st floor capability for sleeping if needed
Pt is indep at baseline, drives+
Denies use of DMEs and financial insecurities
PCP- Willie Mae
Rx- [facility]
Plan for OR today for R. ULS with urp/Dr Saldivar
CM to watch for post op needs
Discharge Disposition- anticipate home, no needs, spouse transport
--- NOTE | 2024-08-11 17:16 | W.IMMPOSTOP ---
Surgical Immed Post Op Note
-
Primary Surgeon:
terrance
Assisting Surgeon:
Pre-op Diagnosis:
right ureteral stone
Post-op Diagnosis:
same
Procedure Performed:
right ureteroscopy, laser litho and stent
Anesthesia Type:
gen
Specimen / Cultures:
stone
Estimated Blood Loss:
2cc
Complications:
none
Operative Findings:
6f/24cm right ureteral stent
to pacu in stable condition
[2024-08-11] MEDS: DUONEB 3 ML INH ×2 (17:45→23:51)
--- NOTE | 2024-08-11 18:01 | SUR.PHASEI ---
Received pt from OR, restless, audible stridor. Pt sat's 100% on simple mask 6L. Dr. Resendiz notified and at bedside with CUSTOMER SOLUTIONS SPECIALIST. Emotional support provided. Versed 05mg given IV by CUSTOMER SOLUTIONS SPECIALIST and respiratory notified duo neb and racemic epi given with
little to no relief. Pt states he can't breath. BIPAP applied [address] Mulligan at bedside, and plan of care being updated. This RN remains with pt at bedside offering emotional support
[2024-08-11] MEDS: VAPONEFRIN NEBS 0.5 ML INH (18:10)
--- NOTE | 2024-08-11 18:12 | W.PN.UPDATE ---
Addendum entered and electronically signed by Elvie Mulligan MD 08/11/24 18:17:
patient calming down, I'm able to hear good air movement in lungs and throat without stridor. no wheezing.
about to receive additional Versed
Original Note:
Update Note
Progress Note Update
Patient with significant stridor/tachycardia post OR. Dr. Saldivar updated , reported similar events past surgeries. Patient given duonebs, racemic epi and is now on BiPAP. Case discussed with anesthesia and Superintendent [employer]. Will give additional
Versed, obtain ABG. If tires out, he may require intubation.
Patient will not leave PACU until issue resolved. If intubated, will transfer to ICU.
[2024-08-11] MEDS: TORADOL 15 MG IV (18:18)
[2024-08-11] MEDS: VERSED 2 MG IV (18:20)
--- NOTE | 2024-08-11 18:22 | W.PN.UPDATE ---
Update Note
Progress Note Update
in pacu- pt has developed sig stridor and restlessness- pt reported this to some extent pre-op/ confirms these were prolonged episodes and old notes reviewed
oxygen sats are good
anesth/hospitalist and resp therapy evaluated
also med team spoke with hospitalist
pt given nebs and on bipap
continue to observe
plan for IMU
updated
[2024-08-11] MEDS: DECADRON 10 MG IV (18:23)
[2024-08-11 18:40] LABS: B.E. 2.4 mmol/L; HCO3 22.5 mmol/L (21-28); PCO2 24 mmHg (35-48); PO2 158 mmHg (83-108); pH 7.58 (7.35-7.45)
--- NOTE | 2024-08-11 19:56 | PTCARENOTE ---
Rec'd pt from STYLIST ASSISTANT with RT at bedside. Pt on BiPAP, c/o SOB, SaO2 95%. Pt repositioned in bed. C/o pain/discomfort at groin, medications reviewed by this RN. ST on CM, BP stable. Pt oriented and able to make needs known at this time. Cell phone
within reach. Call sloan within reach. Continuous puls ox monitoring in place. Education provided, encouraged to alert this RN with increase in symptoms.
[2024-08-11] MEDS: Pyridium 100 MG PO (23:25)
[2024-08-12] VITALS (16 sets, daily range): BP systolic 97–135; BP diastolic 45–92
[2024-08-12] MEDS: TORADOL 15 MG IV ×3 (01:03→17:01)
[2024-08-12] MEDS: DILAUDID 0.5 MG IV (05:35)
[2024-08-12 05:41] LABS: % Basophils 0.1 % (0-2); % Immature Granulocytes 0.4 % (0-0.5); % Lymphocytes 5.6 % (20.5-51.1); % Monocytes 2.2 % (1.7-9.3); % Neutrophils 91.7 % (42.2-75.2); Absolute Lymphocytes 0.4 10^3/uL (1.2-3.4); Absolute Monocytes 0.2 10^3/uL (0.1-0.6); Absolute Neutrophils 7.2 10^3/uL (1.4-6.5); Hematocrit 39.6 % (39.0-52.0); Mean Corp Hgb Conc. 35.4 g/dL (33.0-37.0); Mean Corpuscular Hgb 31.8 pg (27.0-31.0); Mean Platelet Volume 10.4 fL (7.4-10.4); Nucleated Red Blood Cells % 0 % (-); Platelet Count 184 10^3/uL (130-400); Red Cell Dist. Width 12.5 % (11.5-14.5); White Blood Cell Count 7.8 10^3/uL (4.8-10.8)
[2024-08-12 06:02] LABS: Blood Urea Nitrogen 18 mg/dl (9-20); Carbon Dioxide 25 mmol/L (22-30); Chloride 107 mmol/L (98-107); Estimated Creatinine Clearance > 125 ml/min; Glucose 148 mg/dl (70-99); Magnesium 2.1 mg/dl (1.6-2.3); Potassium 4.6 mmol/L (3.5-5.1); Sodium 139 mmol/L (135-145); eGFR > 60.00
--- NOTE | 2024-08-12 06:39 | W.PN.URO.CBU ---
Today's Communication / Plan
-
discharge when medically cleared
Assessment / Plan
-
s/p right ureteroscopy/laser litho and stent
post op resp issues- resolved
reviewed with pt
from gu perspective cleared for discharge
outpt f/u for stent removal
will follow
Diagnosis
-
Date of Service: August 12, 2024
-
Patient Diagnosis:
stone
post op resp issues
Post Op Day:
right ureteroscopy/laser litho and stent 08/11
Subjective
-
pt feels much better
on simple nasal canula this am with no breathing difficulties and good sats
expected hematuria and frequency
Objective
-
Vital Signs
Temp Pulse Resp BP Pulse Ox
98.6 F 75 11 111/73 93
08/12/24 03:30 08/12/24 06:17 08/12/24 06:17 08/12/24 06:17 08/12/24 06:17
Intake and Output
08/10/24 08/11/24 08/12/24
06:59 06:59 06:59
Intake Total 50 / 50
Output Total 1200 / 1200
Balance -1150 / -1150
Intake:
IV fluids (Total) 50 / 50
Normosol 50 / 50
Output:
Urine, Voided 1200 / 1200
Laboratory Results
08/12/24 05:27
08/12/24 05:27
Review of Systems
-
Constitutional: Fatigue
Respiratory: No Symptoms
Cardiac: No Symptoms
Abdomen/GI: No Symptoms
: Frequency
Physical Exam
-
General - no acute distress
Abdomen - soft, non-tender
[2024-08-12] MEDS: DUONEB 3 ML INH (08:07)
[2024-08-12] MEDS: CRESTOR 20 MG PO (08:53)
[2024-08-12] MEDS: Pyridium 100 MG PO ×2 (08:53→17:01)
[2024-08-12] MEDS: FLOMAX 0.4 MG PO (08:54)
--- NOTE | 2024-08-12 11:01 | PTCARENOTE ---
Assumed care of patient this morning. He is aaox3, no complaints. He reports his pain is about a 4/10 but tolerable following scheduled Toradol. Patient is voiding, brown, sandy urine. Pt's breathing feels comfortable, attempting to wean off O2.
Assessment, care and VS as charted.
[2024-08-12] MEDS: ZOFRAN 4 MG IV (11:43)
--- NOTE | 2024-08-12 12:59 | PTCARENOTE ---
Attempted to wean patient off of oxygen, SPO2 dropping to 88-89%. 1L NC placed back on patient, improved to 93%.
--- NOTE | 2024-08-12 16:53 | W.PN.HOSP.TC ---
Today's Communication/Plan
-
hold DC
CT-A
Pulm consult
EKG
Assessment / Plan
Assessment / Plan
Mr. Kenny Canchola is a 59 yo man with hx HTN, HLD, diverticulitis s/p colon resection (11/03), recent ER visit 2 days ago diagnosed with a 4mm distal right ureteral stone presents back with continued pain along right flank/lower abdomen.
Triage VS: T 98.9, P 120, RR 20, BP 133/88, SpO2 96%
LABS: WBC 5.7, Hg 16.1, PLT 208, Na 140, Cl 105, CO2 27, Cr 0.8, Glucose 122
08/09 Abdomen/Pelvis CT
IMPRESSION:
1. Mild right hydronephrosis secondary to 4 mm calculus at the distal right ureter as above. No other renal or ureteral calculi identified.
2. Diffuse mild wall thickening of the urinary bladder which may be partially related to underdistention. Outlet obstruction is a consideration. Mild prostatomegaly.
3. Hepatic fatty infiltration.
08/11 Abdomen X-Ray
IMPRESSION:
There is a question 4 3 mm calcification projecting over the right sacral ala which may represent the known stone in the distal right ureter seen on recent CT.
Contrast is present throughout the colon, likely residual oral contrast from prior CT. There is no evidence of bowel obstruction.
MAR: IV Dilaudid x 2; IV Toradol, NS 1L
Obstructing Nephrolithiasis
-seen by Dr. Saldivar in the ER
-difficult with pain management/stone passage as outpatient - admit to inpatient
-underwent right ureteroscopy/laser lithotripsy and stent
-IVF
-IV Cefazolin pre-OR
-IV Dilaudid PRN
-EDUCATIONAL ADVISOR Flomax
had stridor/tachycardia post OR. He remains hypoxic, still requiring oxygen to maintain SaO2>91%. No wheeze.
Unclear etiology. Doubt PE, but should check with CT-A. No chest pain, but will check EKG
Call placed and discussed with Dr. Waters
Obviously not going home tonight
MARCIN
-s/p recent inspire implant
Essential HTN
-hold EDUCATIONAL ADVISOR Valsartan/Amlodipine for now - monitor BP post anesthesia. BP remains low
HLD - EDUCATIONAL ADVISOR Statin
DVT PPx SCD
FULL CODE
Anticipated Discharge: 24 - 48 hours
Subjective/Interval History
-
Date of Service: August 12, 2024
No pain, but has been mildly hypoxemic today. Still requiring 1 L/M NC
Objective Data
-
Labs:
Laboratory Results
08/12/24
05:27
WBC 7.8
Hgb 14.0
Hct 39.6
Plt Count 184
Sodium 139
Potassium 4.6
Chloride 107
Carbon Dioxide 25
BUN 18
Creatinine 0.8
Glucose 148 H
Calcium 9.0
Vital Signs:
Vital Signs
Temp Pulse Resp BP Pulse Ox
98.4 F 85 15 112/66 92
08/12/24 11:49 08/12/24 14:00 08/12/24 14:00 08/12/24 14:00 08/12/24 14:00
I&O
08/11/24 08/12/24 08/13/24
06:59 06:59 06:59
Intake Total 50 / 50
Output Total 1200 / 1200 550 / 550
Balance -1150 / -1150 -550 / -550
Review of Systems
-
History Source: Patient and Coordinated Provider
Constitutional: Denies Fever
EENT: Reports No Symptoms Reported
Respiratory: Reports Trouble Breathing (short of breath)
Cardiac: Denies Chest Pain
Abdomen/GI: Reports No Symptoms
Physical Exam
-
General: Well Developed, Well Nourished and No Apparent Distress
HEENT: Normocephalic, Atraumatic and Moist Mucous Membranes
Respiratory: Clear to Auscultation and Rales (minimal bibasilar atelectatic rales); Negative Wheezes or Rhonchi
Cardiac: Regular Rhythm, S1/S2 and Tachycardic (becomes tachycardic with minimal exertion)
GI: Soft, Nontender and Nondistended
--- NOTE | 2024-08-12 17:35 | PTCARENOTE ---
Patient was in bathroom washing up and HR increased to the 140s. was already on the floor. Unable to wean patient off of 1L O2. Orders for EKG, Chest PE study and pulmonary consult. Pt asymptomatic. Vitals signs stable otherwise.
[2024-08-13] MEDS: Pyridium 100 MG PO ×2 (00:06→08:07)
[2024-08-13 00:08] VITALS: BP 120/78
--- NOTE | 2024-08-13 00:21 | PTCARENOTE ---
Assumed care for patient overnight. Pt AAOx3, pleasant. Pt weaned to room air and maintaining SpO2 94%, denies SOB. Pt has an occasional dry cough. Pt having some mild discomfort while urinating, described it as 'burning'. NSR on the monitor. RT
bedside to place pt on the BiPAP. Pt refusing to wear the BiPAP despite education and encouragement. Pt ambulated to the bathroom with standby assistance, no dyspnea or SOB. Assessment and vitals as charted. Pt has the call sloan within reach.
[2024-08-13 02:00] VITALS: BP 98/62
[2024-08-13] MEDS: TORADOL 15 MG IV ×2 (03:10→09:54)
[2024-08-13 03:39] LABS: % Basophils 0.1 % (0-2); % Eosinophils 0.1 % (0-6); % Immature Granulocytes 0.5 % (0-0.5); % Lymphocytes 8.1 % (20.5-51.1); % Monocytes 7.9 % (1.7-9.3); % Neutrophils 83.3 % (42.2-75.2); Absolute Immature Granulocytes 0.1 10^3/uL (0-0.05); Absolute Lymphocytes 1.3 10^3/uL (1.2-3.4); Absolute Monocytes 1.2 10^3/uL (0.1-0.6); Absolute Neutrophils 12.9 10^3/uL (1.4-6.5); Hematocrit 41.5 % (39.0-52.0); Hemoglobin 14.5 g/dL (13.0-18.0); Mean Corp Hgb Conc. 34.9 g/dL (33.0-37.0); Mean Corpuscular Hgb 31.9 pg (27.0-31.0); Mean Corpuscular Volume 91.4 fL (80.0-94.0); Nucleated Red Blood Cells % 0 % (-); Platelet Count 195 10^3/uL (130-400); Red Blood Cell Count 4.54 10^6/uL (4.70-6.10); Red Cell Dist. Width 12.7 % (11.5-14.5); White Blood Cell Count 15.5 10^3/uL (4.8-10.8)
[2024-08-13 04:00] VITALS: BP 100/61
[2024-08-13 04:00] LABS: Blood Urea Nitrogen 29 mg/dl (9-20); Calcium 9.3 mg/dl (8.4-10.2); Carbon Dioxide 25 mmol/L (22-30); Chloride 105 mmol/L (98-107); Estimated Creatinine Clearance > 125 ml/min; Glucose 134 mg/dl (70-99); Potassium 4.4 mmol/L (3.5-5.1); Sodium 141 mmol/L (135-145); eGFR > 60.00
[2024-08-13 04:11] LABS: Troponin I < 0.012 ng/ml
[2024-08-13 06:00] VITALS: BP 106/66
--- NOTE | 2024-08-13 07:16 | W.PN.URO.CBU ---
Today's Communication / Plan
-
outpt f/u for stent removal
Assessment / Plan
-
s/p right ureteroscopy/laser litho and stent
post op resp issues- resolved
reviewed with pt
from gu perspective cleared for discharge
outpt f/u for stent removal
Diagnosis
-
Date of Service: August 13, 2024
-
Patient Diagnosis:
stone
post op resp issues
Post Op Day:
right ureteroscopy/laser litho and stent 08/11
Subjective
-
pt looks and feels much better
off oxygen
chest ct negative
mild elevation of wbc- but no fevers- likely reactionary
Objective
-
Vital Signs
Temp Pulse Resp BP Pulse Ox
98.1 F 91 24 106/66 89
08/13/24 03:00 08/13/24 06:00 08/13/24 06:00 08/13/24 06:00 08/13/24 06:00
Intake and Output
08/12/24 08/13/24 08/14/24
06:59 06:59 06:59
Intake Total 50 / 50 480 / 480
Output Total 1200 / 1200 1750 / 1750
Balance -1150 / -1150 -1270 / -1270
Intake:
Oral fluids 480 / 480
IV fluids (Total) 50 / 50
Normosol 50 / 50
Output:
Urine, Voided 1200 / 1200 1750 / 1750
Other:
Number of approximated MODERATE 1
amounts of urine
Laboratory Results
08/13/24 03:20
08/13/24 03:20
Review of Systems
-
Constitutional: Fatigue
Respiratory: No Symptoms
Cardiac: No Symptoms
Abdomen/GI: No Symptoms
: Frequency
Physical Exam
-
General - no acute distress
--- NOTE | 2024-08-13 07:31 | PTCARENOTE ---
On walking rounds pt is AAOx3 anxious for discharge, offering no complaints. On RA , no distress
[2024-08-13] MEDS: FLOMAX 0.4 MG PO (08:07)
[2024-08-13] MEDS: CRESTOR 20 MG PO (08:07)
--- NOTE | 2024-08-13 08:43 | CON.PUL ---
Consultation
Consultation Request
Date/Time Consultation Requested: 08/12/2024 - 1714
Date/Time Consultation Performed: 08/13/2024 - 839
Requesting Provider: Dr. Francisco
Performing Provider: Dr. Waters
Reason for Consultation: SOB/Hypoxia
Medical History
-
Chief Complaint: Flank pain + nausea
History of Present Illness:
59-year-old male non-smoker with a past medical history of diverticulitis s/p sigmoidectomy (09/2022), MARCIN s/p inspire, psoriatic arthritis, hypertension/hyperlipidemia and kidney stones who presented with right sided abdominal/flank pain. He has a
history of kidney stones and says this pain is worse. Pain started 4 days prior to arrival. No fevers or chills reported. CT abdomen/pelvis obtained on 08/09/2024 showing mild right-sided hydronephrosis with a 4 mm calculus at the distal right
ureter. Labs showed normal WBC at 5.7, Hb 16.1, and absolute eosinophil count 100. Urinalysis showed plus for occult blood with few bacteria and negative nitrites and negative leukocyte esterase. Urology consulted and patient was consented for a
cystoscopy procedure, and underwent right ureteroscopy with laser lithotripsy and stent placement. Postoperatively in the PACU he developed significant shortness of breath with stridor and restlessness. Oxygen saturations were good. He was
started onto BiPAP and is s/p DuoNebs, racaemic epi and Decadron 10mg IVPx1 in addition to Versed. He was admitted [facility] but given the events in the PACU, he was upgraded to the IMU for further care. Pulmonary service now consulted
for additional management/recommendations.
When I saw the patient this morning, he was resting in bed in no acute distress. He feels well with no shortness of breath or cough. Denies abdominal pain, nausea, vomiting, fevers or chills. He says he is very active at home, has 7 acres [address]
and maintains 5 of it. Denies history of exertional shortness of breath, nocturnal awakenings due to shortness of breath or cough, and is a non-smoker.
PMHx: Sigmoid diverticulitis s/p robotic sigmoidectomy (09/2022), MARCIN noncompliant CPAP s/p Inspire, psoriasis/psoriatic arthritis, hypertension, hyperlipidemia, kidney stones
PSHx: Colonoscopy, robotic sigmoidectomy (September 2022)
Past Medical History
Past Medical History: Other (Above as per HPI)
Past Surgical History: Other (Above as per HPI)
Social History
Tobacco: Non-smoker
Alcohol: Occasional (Social)
Drug: None
Family History
Family History: Other (Mother + Father: CVA; Mother: A-fib with history of pacemaker)
Allergies / Home Medications
Allergies
Allergy/AdvReac Type Severity Reaction Status Date / Time
No Known Allergies Allergy Verified 08/11/24 09:33
Home Medications
�Medication �Instructions �Recorded �Confirmed �Last Taken �Type
amlodipine 10 mg tablet (Norvasc) 10 mg PO DAILY Blood Pressure 05/13/23 08/11/24 08/11/24 History
tamsulosin 0.4 mg capsule (Flomax) 0.4 mg PO DAILY #20 caps 08/09/24 08/11/24 08/11/24 Rx
rosuvastatin 20 mg tablet (Crestor) 20 mg PO DAILY High Cholesterol 08/11/24 08/11/24 14 Days Ago History
~07/28/24
valsartan 320 mg tablet 320 mg PO DAILY Blood Pressure 08/11/24 08/11/24 Unknown History
nitrofurantoin 100 mg PO BID #10 caps 08/12/24 Unknown Rx
monohydrate/macrocrystals 100 mg
capsule (Macrobid)
nitrofurantoin 100 mg PO BID #10 caps 08/12/24 Unknown Rx
monohydrate/macrocrystals 100 mg
capsule (Macrobid)
phenazopyridine 100 mg tablet 100 mg PO BID #20 tabs 08/12/24 Unknown Rx
(Pyridium)
tamsulosin 0.4 mg capsule 0.4 mg PO DAILY #10 caps 08/12/24 Unknown Rx
tramadol 50 mg tablet 50 mg PO BID PRN Pain #14 tabs 08/12/24 Unknown Rx
Review of Systems
-
History Source: Patient
All other systems: Negative unless noted
Vitals / Labs / Diagnostic Testing
Vital Signs
Temp Pulse Resp BP Pulse Ox
98.0 F 75 16 106/66 95
08/13/24 07:20 08/13/24 08:00 08/13/24 08:00 08/13/24 06:00 08/13/24 08:47
Lab Data
08/13/24 03:20
08/13/24 03:20
Diagnostic Testing:
Physical Exam
-
HEENT: Normocephalic, Anicteric and Other (No stridor heard upon auscultation of anterior or lateral neck)
Cardiovascular: S1/S2 and Peripheral Edema (negative)
Respiratory: Wheeze (negative), Rales (Bibasilar (R >L)), Rhonchi (negative) and Non-Labored Respirations
GI: Soft, Distended (Abdominal obesity), Non Tender and Normal Bowel Sounds
Neurology: AO x 3 and Tremors (negative)
Skin: Warm and Dry
General: Respiratory Distress (negative), Comfortable, Fever (negative) and Chills (negative)
Assessment
-
Assessment: 59-year-old male non-smoker with a past medical history of diverticulitis s/p sigmoidectomy (09/2022), MARCIN s/p inspire, psoriatic arthritis, hypertension/hyperlipidemia and kidney stones who presented with right sided abdominal/flank
pain. He has a history of kidney stones and says this pain is worse. Pain started 4 days prior to arrival. No fevers or chills reported. CT abdomen/pelvis obtained on 08/09/2024 showing mild right-sided hydronephrosis with a 4 mm calculus at the
distal right ureter. Labs showed normal WBC at 5.7, Hb 16.1, and absolute eosinophil count 100. Urinalysis showed plus for occult blood with few bacteria and negative nitrites and negative leukocyte esterase. Urology consulted and patient was
consented for a cystoscopy procedure, and underwent right ureteroscopy with laser lithotripsy and stent placement. Postoperatively in the PACU he developed significant shortness of breath with stridor and restlessness. Oxygen saturations were
good. He was started onto BiPAP and is s/p DuoNebs, racaemic epi and Decadron 10mg IVPx1 in addition to Versed. He was admitted to [facility] initially but given the events in the PACU, he was upgraded to the IMU for further care. Pulmonary service
now consulted for additional management/recommendations.
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
Impression:
#Postoperative respiratory distress with stridor + restlessness likely due to broncho-laryngospasm
#Acute respiratory failure with hypoxia requiring BiPAP, on room air as of evening of 08/12/2024
#Leukocytosis likely due to recent steroid administration
#Right ureteral stone with intractable colic s/p cystoscopy with right ureteroscopy + laser lithotripsy with stent placement (OR date: 08/11/2024)
#MARCIN previously noncompliant to CPAP now s/p Inspire device
#Obesity
Plan:
- Patient now on room air, breathing comfortably. Has required 3 doses of DuoNebs over the last 2 days, although has no official diagnosis of asthma or reactive airway disease
- I will arrange for outpatient pulmonary office follow-up for full PFTs and for continued monitoring of his respiratory symptoms
- Would discharge home with a nebulizer in case symptoms return, and advised to use DuoNebs q4hr prn for wheezing/SOB; nebulizer with DuoNebs is medically necessary given his recent events of severe shortness of breath that could recur at home.
Discussed this with the patient and he agrees. Recommended to use as needed and we will continue additional workup in the pulmonary office.
- Could also consider ENT consult with/without stroboscopy if Sx return, tanmay if worrisome for vocal cord adduction syndrome
- CTA chest obtained on 08/12/2024 shows linear atelectasis in the right lower lobe, right middle lobe and posteromedial left lower lobe. There are air bronchograms in the right lower lobe leading to this atelectatic area but no obvious
consolidation, and he lacks clinical symptoms of pneumonia and remains afebrile. Will continue to monitor him and hold off on Abx for now
- Incentive spirometer encouraged q1hr while awake
- Advised to stay active once back home as this will also help improve his atelectasis seen on imaging
- Maintain SpO2 >90-94% with supplemental O2 as needed
- prn nebulized bronchodilators - not currently bronchospastic
- Replete electrolytes with K>4, Mg>2
- Trend H/H and transfuse if needed to keep Hb>7g/dL; keep plt>20k, unless there is concern for bleeding then keep plt>50k
- Maintain euglycemia with goal BG >100 and <180
- DVT ppx
Patient stable for discharge home with outpatient pulmonary follow-up. Will follow along if he remains hospitalized otherwise we will sign off once he is discharged. Thank you for allowing us to be involved in the care of this patient.
Data:
CT abdomen/pelvis with IV + oral contrast 08/09/2024:
1. Mild right hydronephrosis secondary to 4 mm calculus at the distal right ureter as above. No other renal or ureteral calculi identified.
2. Diffuse mild wall thickening of the urinary bladder which may be partially related to underdistention. Outlet obstruction is a consideration. Mild prostatomegaly.
3. Hepatic fatty infiltration.
CTA chest 08/12/2024:
No evidence of pulmonary embolism.
Pulmonary artery branching order level of the most proximal pulmonary embolism: N/A
Mild parenchymal scarring versus atelectasis
Total time spent today was 58 minutes for this encounter. Time includes reviewing laboratory test/imaging results, reviewing pertinent medical records, obtaining and reviewing medical history, performing an appropriate exam, ordering medications,
tests and procedures. Time also includes documentation of this encounter, coordinating patient care and communicating with other healthcare professionals. Total time does not include separately billed tests performed on this date of service.
--- NOTE | 2024-08-13 11:32 | W.PN.HOSP.TC ---
Addendum entered and electronically signed by Willie Francisco MD 08/13/24 13:25:
pulm believes the elevated WBC is from the steroids and should not interfere with planned dc
Original Note:
Today's Communication/Plan
-
dc to home
Assessment / Plan
Assessment / Plan
Mr. Kenny Canchola is a 59 yo man with hx HTN, HLD, diverticulitis s/p colon resection (11/03), recent ER visit 2 days ago diagnosed with a 4mm distal right ureteral stone presents back with continued pain along right flank/lower abdomen.
08/09 Abdomen/Pelvis CT
IMPRESSION:
1. Mild right hydronephrosis secondary to 4 mm calculus at the distal right ureter as above. No other renal or ureteral calculi identified.
2. Diffuse mild wall thickening of the urinary bladder which may be partially related to underdistention. Outlet obstruction is a consideration. Mild prostatomegaly.
3. Hepatic fatty infiltration.
08/11 Abdomen X-Ray
IMPRESSION:
There is a question 4 3 mm calcification projecting over the right sacral ala which may represent the known stone in the distal right ureter seen on recent CT.
Contrast is present throughout the colon, likely residual oral contrast from prior CT. There is no evidence of bowel obstruction.
Obstructing Nephrolithiasis
-seen by Dr. Saldivar - cleared for dc
-difficult with pain management/stone passage as outpatient - admit to inpatient
-underwent right ureteroscopy/laser lithotripsy and stent
-IV Cefazolin pre-OR
-IV Dilaudid PRN
-OFFICE RUNNER Flomax, short course of Augmentin
had stridor/tachycardia post OR. He remained hypoxic, still requiring oxygen to maintain SaO2>91%. No wheeze.
Unclear etiology, possible reaction to anesthesia (?) now fully resolved. Doubt PE, but should check with CT-A neg No chest pain, EKG left axis deviation, otherwise nl and unchanged
discussed with Dr. Waters cleared for dc. Would like pt to have out mininebs
MARCIN
-s/p recent inspire implant
Essential HTN
-resume OFFICE RUNNER Valsartan/Amlodipine
HLD - OFFICE RUNNER Statin
DVT PPx SCD
FULL CODE
dc to home
see dictated note
More than 30 minutes spent in discharge including
Final examination of the patient
Summarizing hospital stay
Instructions for continuing care to all relevant caregivers
Preparation of discharge records, prescriptions, and referral forms
Total time spent (in minutes): 45
Anticipated Discharge: Today
Subjective/Interval History
-
Date of Service: August 13, 2024
Feels well, no sob
Objective Data
-
Labs:
Laboratory Results
08/13/24
03:20
WBC 15.5 H
Hgb 14.5
Hct 41.5
Plt Count 195
Sodium 141
Potassium 4.4
Chloride 105
Carbon Dioxide 25
BUN 29 H
Creatinine 0.8
Glucose 134 H
Calcium 9.3
Vital Signs:
Vital Signs
Temp Pulse Resp BP Pulse Ox
98.0 F 75 16 106/66 95
08/13/24 07:20 08/13/24 08:00 08/13/24 08:00 08/13/24 06:00 08/13/24 08:47
I&O
08/12/24 08/13/24 08/14/24
06:59 06:59 06:59
Intake Total 50 / 50 480 / 480
Output Total 1200 / 1200 1750 / 1750
Balance -1150 / -1150 -1270 / -1270
Review of Systems
-
History Source: Patient and Coordinated Provider
Constitutional: Denies Fever
EENT: Reports No Symptoms Reported
Respiratory: Reports No Symptoms; Denies Trouble Breathing (resolved)
Cardiac: Denies Chest Pain
Abdomen/GI: Reports No Symptoms
Neuro: Reports No Symptoms
Physical Exam
-
General: Well Developed, Well Nourished and No Apparent Distress
HEENT: Normocephalic, Atraumatic and Moist Mucous Membranes
Respiratory: Clear to Auscultation and Rales (resolved); Negative Wheezes or Rhonchi
Cardiac: Regular Rhythm, S1/S2 and Tachycardic (becomes tachycardic with minimal exertion)
GI: Soft, Nontender and Nondistended
[2024-08-13 12:14] VITALS: BP 144/102
--- NOTE | 2024-08-13 12:16 | CM ---
Patient with Dx Obstructing Nephrolithiasis s/p right ureteroscopy/laser lithotripsy and stent, stridor/tachycardia post OR. Room air. Mamta prn.
CM Consult: Nebulizer machine/kit with mask and tubing for d/c today
Met with patient who was preparing for d/c.
He agrees with nebulizer delivery to his home from [facility].
Confirmed home address for delivery.
Per nurse, patient will drive himself home today.
Spoke with [facility]; faxed referral via [employer] and script via manual fax. They will deliver to patient's home today.
Plan home today with nebulizer.
--- NOTE | 2024-08-13 13:27 | W.DS.TRANS ---
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
-
Discharge Instructions:
Discharge Diagnosis/Procedures s/p right ureteroscopy/laser litho and stent
Diet No restrictions
Activity No restrictions
Driving Restrictions As prior to admission
Bathing Restrictions OK to Shower
Blood Work CBC, CMP in 1-2 weeks
Wound Care expect blood in urine, urinary urgency and
frequency and some pain with urination
Instructions:
Stand-Alone Forms:
Changes to Home Medications: Yes
Discharge Medications:
DC Medications w/original date entered in [employer]
amlodipine 10 mg tablet (Norvasc) 10 mg PO DAILY Blood Pressure 05/13/23
tamsulosin 0.4 mg capsule (Flomax) 0.4 mg PO DAILY #20 caps 08/09/24
rosuvastatin 20 mg tablet (Crestor) 20 mg PO DAILY High Cholesterol 08/11/24
valsartan 320 mg tablet 320 mg PO DAILY Blood Pressure 08/11/24
nitrofurantoin monohydrate/macrocrystals 100 mg capsule (Macrobid) 100 mg PO BID #10 caps 08/12/24
nitrofurantoin monohydrate/macrocrystals 100 mg capsule (Macrobid) 100 mg PO BID #10 caps 08/12/24
phenazopyridine 100 mg tablet (Pyridium) 100 mg PO BID #20 tabs 08/12/24
tamsulosin 0.4 mg capsule 0.4 mg PO DAILY #10 caps 08/12/24
tramadol 50 mg tablet 50 mg PO BID PRN Pain #14 tabs 08/12/24
ipratropium 0.5 mg-albuterol 3 mg (2.5 mg base)/3 mL nebulization soln 3 ml inhalation Q8H PRN shortness of breath #90 mL 08/13/24
Home Medication Changes
short term Macrobid and Pyridium added
Duoneb prn as per pulmonary
Pending Results: No
== END 2024-08-13 12:25 | disposition home or self-care (01) | DRG 659 ==
LOC: IMU 13:10
PROVIDERS: Physician Assistant Medical; ADMITTING PHYSICIAN Student in an Organized Health Care Education/Training Program; ATTENDING PHYSICIAN Internal Medicine; CONSULT PHYSICIAN Internal Medicine Critical Care Medicine; CONSULT PHYSICIAN Specialist; EMERGENCY PHYSICIAN Emergency Medicine; FAMILY PHYSICIAN Family Medicine
PROC: 5A09357 Assistance with Respiratory Ventilation, Less than 24 Consecutive Hours, Continuous Positive Airway Pressure (ICD-10-PCS; 2024-08-11)
PROC: 0TC68ZZ Extirpation of Matter from Right Ureter, Via Natural or Artificial Opening Endoscopic (ICD-10-PCS; 2024-08-11)
PROC: 0T768DZ Dilation of Right Ureter with Intraluminal Device, Via Natural or Artificial Opening Endoscopic (ICD-10-PCS; 2024-08-11)
DX: N13.2 Hydronephrosis with renal and ureteral calculous obstruction (principal); J96.01 Acute respiratory failure with hypoxia; J98.11 Atelectasis; I10 Essential (primary) hypertension; E78.00 Pure hypercholesterolemia, unspecified; Z90.49 Acquired absence of other specified parts of digestive tract; Z87.442 Personal history of urinary calculi; K59.00 Constipation, unspecified; G47.33 Obstructive sleep apnea (adult) (pediatric); E66.9 Obesity, unspecified; L40.50 Arthropathic psoriasis, unspecified; N40.0 Benign prostatic hyperplasia without lower urinary tract symptoms; Z82.3 Family history of stroke; Z91.199 Patient's noncompliance with other medical treatment and regimen due to unspecified reason
CPT/HCPCS: 36600; 71275; 74018; 76000; 80048; 80076; 81003; 81015; 82365; 82805; 83735; 84132; 84484; 85025; 93005; 94640; 94660; 96361; 96374; 96375; 99284; C1758; C1894; C2617; Q9967